=== PATIENT | female | born 1950 | race Caucasian/White ===

== ENCOUNTER 2016-05-12 14:17 | Emergency (ER) | payer MEDICARE ==
[2016-05-12 17:31] VITALS: BP 188/95
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
[2016-05-12] MEDS ORDERED: Acetaminophen TAB* 325 MG PO ONE (17:55)
== END 2016-05-12 18:04 | disposition home or self-care (01) ==
LOC: UCCORT 14:17
DX: J02.0 Streptococcal pharyngitis (principal); E78.5 Hyperlipidemia, unspecified; Z88.5 Allergy status to narcotic agent
CPT/HCPCS: 87651; 99212; A9270-GY; G0463

== ENCOUNTER 2017-06-22 17:08 | Emergency (ER) | payer MEDICARE ==
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
[2017-06-22 18:05] VITALS: BP 183/87
[2017-06-22] MEDS ORDERED: Lidocaine 1% MPF* 2 ML VIAL INJ ONE (18:18)
[2017-06-22] MEDS ORDERED: Cephalexin CAP* 500 MG PO ONE (19:00)
== END 2017-06-22 19:06 | disposition home or self-care (01) ==
LOC: UCCORT 17:08
DX: L08.9 Local infection of the skin and subcutaneous tissue, unspecified (principal); L98.9 Disorder of the skin and subcutaneous tissue, unspecified; Z88.1 Allergy status to other antibiotic agents; I10 Essential (primary) hypertension; K21.9 Gastro-esophageal reflux disease without esophagitis
CPT/HCPCS: 10060; 99212; A9270-GY; G0463

== ENCOUNTER 2020-10-05 05:39 | Observation (INO) ==
[2020-10-05] MEDS ORDERED: Buffered Lidocaine 1% SYRIN 1 ml INTRADERM ONE (06:00)
[2020-10-05] MEDS ORDERED: Lactated Ringers 1000 ml BAG 1,000 ML IV SCH ×2 (06:00→09:00)
[2020-10-05] MEDS ORDERED: ceFAZolin 2 GM PREMIX 2 GM/50 ML BAG ONE (06:45)
[2020-10-05] MEDS ORDERED: Lidocaine 2% PF 5 ML VIAL ONE ×2 (07:08→07:13)
[2020-10-05] MEDS ORDERED: fentaNYL 100 mcg/2 ml 50 MCG/ML VIAL ONE (07:08)
[2020-10-05] MEDS ORDERED: Midazolam 2 mg/2 ml VIAL 1 mg/ml 2 ml VIAL (2 mg) ONE (07:09)
[2020-10-05] MEDS ORDERED: Sodium Chloride 0.9% 10 ML ONE (07:09)
[2020-10-05] MEDS ORDERED: Ropivacaine 5 MG/ML 20 ML VIAL 0.5% (100 MG) ONE (07:12)
[2020-10-05] MEDS ORDERED: Dexmedetomidine 200 mcg/2 ml 2 ml VIAL (200 mcg) ONE (07:13)
[2020-10-05] MEDS ORDERED: ROPIVACAINE 5 MG/ML 30 ML BTL (0.5%) ONE (07:13)
[2020-10-05] MEDS ORDERED: Phenylephrine 40 mcg/mL 10mL (400mcg) SYRINGE ONE (08:14)
[2020-10-05] MEDS ORDERED: diPHENhydraMINE IV 50 MG/ML 1 ml VIAL (BENADRYL) IV PRN (08:25)
[2020-10-05] MEDS ORDERED: Ondansetron ODT 4 mg TAB 4 MG TAB PO PRN (08:25)
[2020-10-05] MEDS ORDERED: Lactulose 30 ml UDC PO PRN (08:25)
[2020-10-05] MEDS ORDERED: Ondansetron 4 mg VIAL 2 MG/ML 2 ml VIAL IV PRN (08:25)
[2020-10-05] MEDS ORDERED: Morphine 2 MG/ML SYRINGE IV PRN (08:25)
[2020-10-05] MEDS ORDERED: Magnesium Hydroxide LIQ 30 ML UDC PO PRN (08:25)
[2020-10-05] MEDS ORDERED: diPHENhydraMINE 25 mg TAB PO PRN (08:25)
[2020-10-05] MEDS ORDERED: Bupivacaine 0.5% SDV PF 30ML VIAL ONE (08:32)
[2020-10-05] MEDS ORDERED: Phenylephrine IV 10 MG/ML 1 ml VIAL ONE (08:38)
[2020-10-05] MEDS ORDERED: HYDROmorphone 1 MG/1 ML SYRINGE IV PRN (08:52)
[2020-10-05] MEDS ORDERED: DiMENhydriNATE IV 50 mg/ml 1 ml VIAL IV PUSH PRN (08:52)
[2020-10-05] MEDS ORDERED: Naloxone 0.4 mg VIAL 0.4 mg/ml 1 ml VIAL IV PRN (08:52)
[2020-10-05] MEDS: Aspirin EC 81 mg TAB.EC (enteric coated) PO SCH (11:47)
[2020-10-05] MEDS: Magnesium Hydroxide LIQ 30 ML UDC PO SCH ×2 (11:48→21:23)
[2020-10-05] MEDS: Vitamin THERAPEUTIC TAB PO SCH (11:48)
[2020-10-05] MEDS: ceFAZolin 1 GM ADVAN 1 GM in NS 0.9% 50 ML 50 ML IVPB SCH (16:02)
[2020-10-06] MEDS: ceFAZolin 1 GM ADVAN 1 GM in NS 0.9% 50 ML 50 ML IVPB SCH ×2 (00:16→07:33)
[2020-10-06 05:20] LABS: Hematocrit 36 % (35-47); Hemoglobin 12.3 g/dL (12.0-16.0); Mean Platelet Volume 8.9 fL (7.4-10.4); Platelet Count 229 10^3/uL (150-450)
[2020-10-06 05:40] LABS: Calcium 8.8 mg/dL (8.6-10.3); EGFR African American 117.3 (>60); Potassium 3.4 mmol/L (3.5-5.0)
[2020-10-06] MEDS ORDERED: Potassium Chlor 20 meq TAB.ER PO ONE (07:29)
[2020-10-06] MEDS: Aspirin EC 81 mg TAB.EC (enteric coated) PO SCH (08:52)
[2020-10-06] MEDS: Magnesium Hydroxide LIQ 30 ML UDC PO SCH (08:53)
[2020-10-06] MEDS: Vitamin THERAPEUTIC TAB PO SCH (08:53)
[2020-10-06 11:25] VITALS: BP 114/52
== END 2020-10-06 13:15 | disposition home or self-care (01) ==
LOC: AA 05:39 → INTOOBSV 05:39 → SSU 08:25
PROVIDERS: ADMIT Orthopaedic Surgery Adult Reconstructive Orthopaedic Surgery; ATTEND Orthopaedic Surgery Adult Reconstructive Orthopaedic Surgery